=== PATIENT | male | born 1960 | race Caucasian/White ===

== ENCOUNTER 2018-11-30 11:43 | Emergency (ER) | payer BC ==
[2018-11-30] MEDS ORDERED: Sodium Chloride 0.9% 1,000 ML IV ONE (11:59)
--- NOTE | 2018-11-30 12:01 | EDM.PDOC ---
ED HPI GENERAL MEDICAL PROBLEM - General Chief Complaint: Eye Problems Stated Complaint: SICK EYES NOSE AND EVERYTHING Time Seen by Provider: 11/30/18 11:58 - History of Present Illness INITIAL COMMENTS - FREE TEXT/NARRATIVE: HISTORY AND PHYSICAL: History of present illness: Patient is 58-year-old male presents with a concern of possible heat illness he states he was heavily clothed and working in extremely warm weather yesterday he 's also had some nausea he states he's had diarrhea and has had irritation crustiness and redness of his eyes 24 hours there is no chest pain shortness of breath or other concern Review of systems: As per history of present illness and below otherwise all systems reviewed and negative. Past medical history: As per history of present illness and as reviewed below otherwise noncontributory. Surgical history: As per history of present illness and as reviewed below otherwise noncontributory. Social history: No reported history of drug or alcohol abuse. Family history: As per history of present illness and as reviewed below otherwise noncontributory. Physical exam: HEENT: Atraumatic, normocephalic, pupils reactive, negative for conjunctival pallor or scleral icterus, mucous membranes dry, throat clear, neck supple, nontender, trachea midline. Bilateral injected conjunctiva no foreign body no evidence of corneal abrasion anterior chamber clear Lungs: Clear to auscultation, breath sounds equal bilaterally, chest nontender. Heart: S1S2, regular, negative for clicks, rubs, or JVD. Abdomen: Soft, nondistended, nontender. Negative for masses or hepatosplenomegaly. Negative for costovertebral tenderness. Pelvis: Stable nontender. Genitourinary: Deferred. Rectal: Deferred. Extremities: Atraumatic, negative for cords or calf pain. Neurovascular unremarkable. Neuro: Awake, alert, oriented. Cranial nerves II through XII unremarkable. Cerebellum unremarkable. Motor and sensory unremarkable throughout. Exam nonfocal. Diagnostics: CBC CMP UA Therapeutics: Saline 1 L bolus Impression: #1 conjunctivitis #2 heat illness Definitive disposition and diagnosis as appropriate pending reevaluation and review of above. Bilateral Eyes Pain Score (Numeric/FACES): 10 - Related Data Allergies Allergy/AdvReac Type Severity Reaction Status Date / Time Penicillins Allergy Cannot Verified 11/30/18 11:53 Remember Home Meds: Home Meds . [No Known Home Meds] 07/05/18 [History] Past Medical History Musculoskeletal History: Reports: Other (See Below) Other Musculoskeletal History: broken left arm and ankle - Infectious Disease History Infectious Disease History: Reports: MRSA - Past Surgical History Musculoskeletal Surgical History: Reports: Other (See Below) Other Musculoskeletal Surgeries/Procedures:: left ankle Social & Family History - Family History Family Medical History: Noncontributory - Tobacco Use Smoking Status *Q: Never Smoker - Caffeine Use Caffeine Use: Reports: None - Recreational Drug Use Recreational Drug Use: No ED ROS GENERAL - Review of Systems Review Of Systems: ROS reveals no pertinent complaints other than HPI. ED EXAM GENERAL W FULL EYE - Physical Exam Exam: See Below (See dictation) Course - Vital Signs Last Recorded V/S: Last Vital Signs Temp 35.9 C 11/30/18 11:53 Pulse 84 11/30/18 13:28 Resp 20 11/30/18 13:28 BP 148/99 H 11/30/18 13:28 Pulse Ox 98 11/30/18 13:28 - Orders/Labs/Meds Labs: Laboratory Tests 11/30/18 11/30/18 11/30/18 Range/Units 12:10 12:10 12:10 WBC 4.77 (4.0-11.0) K/uL RBC 5.85 (4.50-5.90) M/uL Hgb 17.3 H (13.0-17.0) g/dL Hct 51.1 H (38.0-50.0) % MCV 87.4 (80.0-98.0) fL MCH 29.6 (27.0-32.0) pg MCHC 33.9 (31.0-37.0) g/dL RDW Std Deviation 45.9 (28.0-62.0) fl RDW Coeff of Mahesh 14 (11.0-15.0) % Plt Count 130 L (150-400) K/uL MPV 11.50 (7.40-12.00) fL Neut % (Auto) 49.9 (48.0-80.0) % Lymph % (Auto) 32.9 (16.0-40.0) % [place] % (Auto) 16.4 H (0.0-15.0) % Eos % (Auto) 0.4 (0.0-7.0) % Baso % (Auto) 0.4 (0.0-1.5) % Neut # (Auto) 2.4 (1.4-5.7) K/uL Lymph # (Auto) 1.6 (0.6-2.4) K/uL [place] # (Auto) 0.8 (0.0-0.8) K/uL Eos # (Auto) 0.0 (0.0-0.7) K/uL Baso # (Auto) 0.0 (0.0-0.1) K/uL Nucleated RBC % 0.0 /100WBC Nucleated RBCs # 0 K/uL Sodium 136 (136-148) mmol/L Potassium 3.7 (3.5-5.1) mmol/L Chloride 102 (98-107) mmol/L Carbon Dioxide 24.7 (21.0-32.0) mmol/L BUN 15 (7.0-18.0) mg/dL Creatinine 1.4 H (0.8-1.3) mg/dL Est Cr Clr Drug Dosing 66.58 mL/min Estimated GFR (MDRD) 52.4 ml/min Glucose 118 H (74-106) mg/dL Calcium 8.5 (8.5-10.1) mg/dL Total Bilirubin 0.7 (0.2-1.0) mg/dL AST 26 (15-37) IU/L ALT 33 (14-63) IU/L Alkaline Phosphatase 58 (46-116) U/L Total Protein 7.8 (6.4-8.2) g/dL Albumin 3.9 (3.4-5.0) g/dL Globulin 3.9 (2.6-4.0) g/dL Albumin/Globulin Ratio 1.0 (0.9-1.6) Urine Color YELLOW Urine Appearance CLEAR Urine pH 6.0 (5.0-8.0) Ur Specific [place] 1.025 (1.001-1.035) Urine Protein 30 H (NEGATIVE) mg/dL Urine Glucose (UA) NEGATIVE (NEGATIVE) mg/dL Urine Ketones TRACE H (NEGATIVE) mg/dL Urine Occult Blood NEGATIVE (NEGATIVE) Urine Nitrite NEGATIVE (NEGATIVE) Urine Bilirubin SMALL H (NEGATIVE) Urine Ictotest NEGATIVE Urine Urobilinogen 0.2 (<2.0) EU/dL Ur Leukocyte Esterase NEGATIVE (NEGATIVE) Urine RBC NONE SEEN (0-2/HPF) Urine WBC NONE SEEN (0-5/HPF) Ur Epithelial Cells NOT SEEN (NONE-FEW) Urine Bacteria RARE (NEGATIVE) Hyaline Casts 3-5 (0-2/LPF) Meds: Medications Discontinued Medications Generic Name Dose Route Start Last Admin Trade Name Judd PRN Reason Stop Dose Admin Sodium Chloride 1,000 mls @ 999 mls/hr 11/30/18 11:59 11/30/18 12:28 Normal Saline IV 11/30/18 12:59 999 mls/hr STAT ONE Administration Departure - Departure Time of Disposition: 10:21 Disposition: Home, Self-Care 01 Clinical Impression: Conjunctivitis, Heat exhaustion - Discharge Information Instructions: Bacterial Conjunctivitis, [id number], Heat Exhaustion Information Referrals: PCP,None [Primary Care Provider] - Forms: ED Department Discharge Additional Instructions: The following information is given to patients seen in the emergency department who are being discharged to home. This information is to outline your options for follow-up care. We provide all patients seen in our emergency department with a follow-up referral. The need for follow-up, as well as the timing and circumstances, are variable depending upon the specifics of your emergency department visit. If you don't have a primary care physician on staff, we will provide you with a referral. We always advise you to contact your personal physician following an emergency department visit to inform them of the circumstance of the visit and for follow-up with them and/or the need for any referrals to a consulting specialist. The emergency department will also refer you to a specialist when appropriate. This referral assures that you have the opportunity for followup care with a specialist. All of these measure are taken in an effort to provide you with optimal care, which includes your followup. Under all circumstances we always encourage you to contact your private physician who remains a resource for coordinating your care. When calling for followup care, please make the office aware that this follow-up is from your recent emergency room visit. If for any reason you are refused follow-up, please contact the [facility] emergency department at and asked to speak to the emergency department charge nurse.
== END 2018-11-30 13:30 | disposition home or self-care (01) ==
LOC: MW.ED 11:43
DX: T67.5XXA Heat exhaustion, unspecified, initial encounter (principal); H10.9 Unspecified conjunctivitis; Z88.0 Allergy status to penicillin; Z86.14 Personal history of Methicillin resistant Staphylococcus aureus infection
CPT/HCPCS: 36415; 80053; 81001; 85025; 96360; 99283; J7040

== ENCOUNTER 2022-11-13 10:50 | Emergency (ER) | payer SELFPAY ==
[2022-11-13 11:56] LABS: HEMOGLOBIN A1C 5.6 %
[2022-11-13 12:06] LABS: ALBUMIN 3.5 g/dL (3.4-5.0); BILIRUBIN TOTAL 0.4 mg/dL (0.2-1.0); CALCIUM 8.6 mg/dL (8.5-10.1); CARBON DIOXIDE,CO2 26.9 mmol/L (21.0-32.0); CREATININE 1.1 mg/dL (0.8-1.3); EST CRCL DRUG DOSING (CG) 80.71 mL/min; POTASSIUM,K 4.5 mmol/L (3.5-5.1)
[2022-11-13] MEDS ORDERED: Iopamidol 755 MG/ML 500 ML Multipack Bottle IVPUSH STA (13:02)
== END 2022-11-13 14:13 | disposition home or self-care (01) ==
LOC: MW.ED 10:50
DX: G62.9 Polyneuropathy, unspecified (principal); Z72.0 Tobacco use; Z88.0 Allergy status to penicillin
CPT/HCPCS: 70450; 70496; 70498; 80053; 83036; 99284; Q9967; 99283

== ENCOUNTER 2022-12-31 12:35 | Emergency (ER) | payer SELFPAY ==
[2022-12-31] MEDS ORDERED: LORazepam 2 MG/ML SDV IVPUSH ONE (12:53)
[2022-12-31] MEDS ORDERED: Aspirin 81 MG Tab.Chew PO ONE (12:53)
[2022-12-31 12:56] LABS: BASOPHILS PERCENT AUTO 0.3 % (0.0-1.5); EOSINOPHILS ABSOLUTE AUTO 0.2 K/uL (0.0-0.7); EOSINOPHILS PERCENT AUTO 2.7 % (0.0-7.0); HEMATOCRIT 46.1 % (38.0-50.0); HEMOGLOBIN 15.8 g/dL (13.0-17.0); LYMPHOCYTES ABSOLUTE AUTO 1.5 K/uL (0.6-2.4); MEAN CORPUSCULAR HEMOGLOBIN 29.6 pg (27.0-32.0); MEAN CORPUSCULAR HGB CONC 34.3 g/dL (31.0-37.0); MEAN CORPUSCULAR VOLUME 86.5 fL (80.0-98.0); MONOCYTES ABSOLUTE AUTO 0.5 K/uL (0.0-0.8); MONOCYTES PERCENT AUTO 7.9 % (0.0-15.0); NEUTROPHILS ABSOLUTE AUTO 4.4 K/uL (1.4-5.7); NEUTROPHILS PERCENT AUTO 67.1 % (48.0-80.0); NRBC ABSOLUTE 0 K/uL; PLATELET COUNT,PLT 165 K/uL (150-400); RED BLOOD CELL COUNT 5.33 M/uL (4.50-5.90)
[2022-12-31] MEDS: Nitroglycerin 0.4 MG Tab.SL SL PRN ×2 (13:20→13:29)
[2022-12-31 13:29] LABS: ALBUMIN 3.5 g/dL (3.4-5.0); BILIRUBIN TOTAL 0.4 mg/dL (0.2-1.0); CALCIUM 8.5 mg/dL (8.5-10.1); CREATININE 1.1 mg/dL (0.8-1.3); EST CRCL DRUG DOSING (CG) 80.71 mL/min; POTASSIUM,K 4.8 mmol/L (3.5-5.1)
[2022-12-31] MEDS ORDERED: Enoxaparin 150 MG/1 ML Syringe SUBCUT STA (13:42)
[2022-12-31 13:56] LABS: INR 0.97 (0.86-1.11); PTT,PARTIAL THROMBOPLSTIN TIME 29.6 SEC (23.9-30.7)
== END 2022-12-31 15:12 ==
LOC: MW.ED 12:35
DX: I21.4 Non-ST elevation (NSTEMI) myocardial infarction (principal); Z88.0 Allergy status to penicillin
CPT/HCPCS: 36415; 71045; 80053; 84484; 85025; 85610; 85730; 93005; 96372; 96374; 99285; A9270; J1650; J2060; 93010; 99284

== ENCOUNTER 2023-07-06 10:51 | Emergency (ER) | payer OTHER ==
[2023-07-06 11:45] LABS: CORONAVIRUS COVID-19 NAA NEGATIVE (NEGATIVE); INFLUENZA A NAA NEGATIVE (NEGATIVE); INFLUENZA B NAA NEGATIVE (NEGATIVE); RESPIRATORY SYNCYTIAL VIR NAA POSITIVE (NEGATIVE)
[2023-07-06 12:18] LABS: BASOPHILS ABSOLUTE AUTO 0.04 K/uL (0.00-0.20); BASOPHILS PERCENT AUTO 0.6 % (0.0-1.0); EOSINOPHILS ABSOLUTE AUTO 0.22 K/uL (0.00-0.45); EOSINOPHILS PERCENT AUTO 3.1 % (0.0-6.0); HEMATOCRIT 47.7 % (42.0-52.0); HEMOGLOBIN 16.5 g/dL (14.0-18.0); IMMATURE GRAN ABSOLUTE AUTO 0.01 K/uL (0.00-0.05); IMMATURE GRAN PERCENT AUTO 0.1 % (0.0-0.4); LYMPHOCYTES ABSOLUTE AUTO 2.09 K/uL (1.00-4.80); MEAN CORPUSCULAR HEMOGLOBIN 29.6 pg (28.0-32.0); MEAN CORPUSCULAR HGB CONC 34.6 g/dL (32.0-36.0); MEAN CORPUSCULAR VOLUME 85.6 fL (83.0-99.0); MEAN PLATELET VOLUME 10.4 fL (9.4-12.4); MONOCYTES ABSOLUTE AUTO 1.34 K/uL (0.00-0.80); MONOCYTES PERCENT AUTO 18.6 % (0.0-8.0); NEUTROPHILS PERCENT AUTO 48.6 % (41.0-71.0); PLATELET COUNT,PLT 161 K/uL (150-400); RED BLOOD CELL COUNT 5.57 M/uL (4.52-5.90)
[2023-07-06] MEDS: Sodium Chloride 0.9% 1,000 ML IV STA (12:24)
[2023-07-06] MEDS: Sodium Chloride 0.9% 2.5 ML Syringe FLUSH PRN (12:25)
[2023-07-06] MEDS: Ondansetron 4 MG/2 ML SDV IVPUSH STA (12:25)
[2023-07-06 12:32] LABS: INR 1.06 (0.86-1.11); PTT,PARTIAL THROMBOPLSTIN TIME 30.5 SEC (23.9-30.7)
[2023-07-06 12:42] LABS: ALBUMIN 3.9 g/dL (3.4-5.0); BILIRUBIN TOTAL 0.8 mg/dL (0.2-1.0); CALCIUM 9.1 mg/dL (8.5-10.1); CARBON DIOXIDE,CO2 24.9 mmol/L (21.0-32.0); CREATININE 1.6 mg/dL (0.8-1.3); EST CRCL DRUG DOSING (CG) 51.64 mL/min; POTASSIUM,K 4.1 mmol/L (3.5-5.1); PROTEIN TOTAL,TP 7.8 g/dL (6.4-8.2)
[2023-07-06 12:45] LABS: MAGNESIUM 2.3 mg/dL (1.8-2.4)
[2023-07-06] MEDS: Acetaminophen 500 MG Tab PO STA (13:23)
[2023-07-06] MEDS: Sodium Chloride 0.9% 10 ML Syringe FLUSH PRN (13:23)
== END 2023-07-06 13:29 | disposition home or self-care (01) ==
LOC: MW.ED 10:51
DX: B97.4 Respiratory syncytial virus as the cause of diseases classified elsewhere (principal); Z88.0 Allergy status to penicillin
CPT/HCPCS: 0241U; 36415; 71046; 80053; 83690; 83735; 84484; 85025; 85610; 85730; 93005; 96360; 99284; A9270; J3490; J7030; 93010

== ENCOUNTER 2024-08-18 14:36 | Emergency (ER) | payer OTHER ==
[2024-08-18] MEDS: Lidocaine 2% Viscous Solution 15 ML UD PO ONE (15:23)
[2024-08-18] MEDS: Benzocaine 20% Topical Spray UD MUCMEM ONE (15:23)
== END 2024-08-18 15:53 | disposition home or self-care (01) ==
LOC: MW.ED 14:36
DX: K04.7 Periapical abscess without sinus (principal); I10 Essential (primary) hypertension; E78.00 Pure hypercholesterolemia, unspecified; Z95.5 Presence of coronary angioplasty implant and graft; Z79.82 Long term (current) use of aspirin; Z79.899 Other long term (current) drug therapy; Z88.0 Allergy status to penicillin; Z75.8 Other problems related to medical facilities and other health care
CPT/HCPCS: 99283; A9270